=== PATIENT | female | born 1945 | race Caucasian/White ===

== ENCOUNTER → 2021-03-10 | Outpatient (CLI) | payer MEDICARE, OTHER ==
[~2021-03-10] MED LIST: ACETAMINOPHEN-1 EAC1 PO; LIPITOR10 MG PO; PROZAC10 MG PO; WELLBUTRIN75 MG PO
== END ==
LOC: M.ULTRA 12:43
PROVIDERS: ATTEND Nurse Practitioner Family
DX: R10.31 Right lower quadrant pain (principal)